=== PATIENT | male | born 1950 | race Hispanic/Latino ===

== ENCOUNTER → 2022-07-10 | Day surgery (SDC) | payer OTHER ==
[~2022-07-10] MED LIST: BENICAR20 MG PO; FENTANYL CITRATE/PF 100MCG/2 ML INJ ONE; FUROSEMIDE40 MG PO; LIPITOR10 MG PO; MIDAZOLAM HCL 2 MG/2 ML VIAL ONE; NIFEDIPINE ER30 M1 PO; OR PHACO EYE KIT ONE; PREOP PHACO EYE KIT ONE; VIT D3 PO
[2022-07-10 06:16] LABS: BASOPHILS % 0.6 % (0.0-1.0); EOSINOPHILS # (AUTO) 0.1 (0.0-0.4); EOSINOPHILS % 1.9 % (0.0-6.0); HEMATOCRIT 43.6 % (38.2-49.6); HEMOGLOBIN 16.1 g/dL (14.0-18.0); LYMPHOCYTES # (AUTO) 2.3 (1.0-3.2); LYMPHOCYTES % 37.6 % (18.0-39.1); MEAN CORPUSCULAR HEMOGLOBIN 35.6 pg (28-32); MEAN CORPUSCULAR HGB CONC 36.9 g/dL (31-35); MEAN CORPUSCULAR VOLUME 96.5 fL (81-99); MONOCYTES # (AUTO) 0.5 (0.2-0.8); MONOCYTES % 8.7 % (4.4-11.3); NEUTROPHILS # (AUTO) 3.2 (2.1-6.9); PLATELET COUNT 98 x10e3/uL (140-360); RED BLOOD COUNT 4.52 x10e6/uL (4.3-5.7); RED CELL DISTRIBUTION WIDTH 20.3 % (11.7-14.4)
[2022-07-10 08:00] VITALS: BP 128/78
== END | disposition home or self-care (01) ==
LOC: OR 06:46
PROVIDERS: ATTEND Ophthalmology
DX: H25.12 Age-related nuclear cataract, left eye (principal); I10 Essential (primary) hypertension; Z79.899 Other long term (current) drug therapy
CPT/HCPCS: 36415; 85025; J2250; J3010; V2632

== ENCOUNTER → 2022-08-07 | Day surgery (SDC) | payer OTHER ==
[~2022-08-07] MED LIST changes: +LACTATED RINGER'S 1,000 ML ONE
[2022-08-07 09:51] VITALS: BP 130/83
== END | disposition home or self-care (01) ==
LOC: OR 06:35
PROVIDERS: ATTEND Ophthalmology
DX: H25.11 Age-related nuclear cataract, right eye (principal); Z79.899 Other long term (current) drug therapy
CPT/HCPCS: J2250; V2632